=== PATIENT | male | born 1965 | race Caucasian/White ===

== ENCOUNTER 2019-07-25 07:46 | Day surgery (SDC) | payer OTHER ==
[~2019-07-25] VITALS: Ht 177.8 cm; Wt 109.0 kg
[~2019-07-25 07:46] MED LIST: ACETAMINOPHEN 500 MG TABLET PO PRN; ASPI-630 PO; BUPIVACAINE-EPI 0.25%-1:200000 MPF 30 ML VIAL. INJ ONE; HYDROmorphone 2 MG/ML VIAL IV PRN; IV RINGERS,LACTATED 1000ML 1,000 ML IV SCH; LIDOCAINE 1% PF 2 ML VIAL. ID PRN; LISI10TA2 PO; MORPHINE SULFATE 2 MG/ML VIAL. IV PRN; ONDA8TAB9 PO; ONDANSETRON PF 4 MG/2 ML VIAL. IV PRN; PROCHLORPERAZINE 10 MG/2 ML VIAL. IV PRN; RANI150C PO; fentaNYL PF VIAL 100 MCG/2 ML VIAL IV PRN
[2019-07-25] MEDS ORDERED: ROCURONIUM 50 MG/5 ML VIAL. ONE (08:42)
[2019-07-25] MEDS ORDERED: SEVOFLURANE 61 TO 120 MINUTES. IH ONE (08:42)
[2019-07-25] MEDS ORDERED: fentaNYL PF VIAL 100 MCG/2 ML VIAL ONE (08:42)
[2019-07-25] MEDS ORDERED: DEXAMETHASONE SOD PHOS 4 MG/ML VIAL ONE ×3 (08:43→09:44)
[2019-07-25] MEDS ORDERED: LIDOCAINE 2% PF 5 ML VIAL. ONE (08:43)
[2019-07-25] MEDS ORDERED: PROPOFOL 20 ML IV ONE ×2 (08:43→09:28)
[2019-07-25] MEDS ORDERED: KETOROLAC 30 MG/ML VIAL. ONE (08:43)
[2019-07-25] MEDS ORDERED: ONDANSETRON PF 4 MG/2 ML VIAL. ONE (08:43)
[2019-07-25] MEDS ORDERED: PHENYLEPHRINE in 0.9% NACL PF 1 MG/10 ML SYRINGE. IV ONE (08:45)
[2019-07-25] MEDS ORDERED: MIDAZOLAM HCL/PF 2 MG/2 ML VIAL. ONE (08:49)
[2019-07-25] MEDS ORDERED: GLYCOPYRROLATE 1 MG/5 ML VIAL. ONE (08:49)
[2019-07-25] MEDS ORDERED: ceFAZolin 2GM PREMIX 2 GM/50 ML BAG IV ONE (09:00)
[2019-07-25] MEDS ORDERED: ePHEDrine PF IN SALINE 50 MG/10 ML SYRINGE. IV ONE (09:36)
[2019-07-25] MEDS ORDERED: NEOSTIGMINE METHYLSULFATE 5 MG/5 ML SYRINGE. ONE (09:42)
--- NOTE | 2019-07-25 09:52 | PDOC4 ---
Operative Note Operative Note Date: 07/25/2019 Preoperative diagnosis chronic cholecystitis cholelithiasis Postoperative diagnosis: Same Procedure: Laprascopic cholecystectomy Surgeon: Juan Specimen: Gallbladder Dictation: Patient is a 54-year-old gentleman with right upper quadrant abdominal pain and ultrasound showing gallstones. The procedure of laparoscopic cholecystectomy was explained to the patient in detail all risks benefits were also discussed including bleeding infection injury to intra-abdominal contents possibly necessitating further or open operations alternatives to this procedure also discussed with patient who seemed to understand gave both verbal and written consent to have the procedure performed. Patient was taken to the operating room placed in supine position general anesthesia was initiated once patient was asleep and intubated his abdomen was prepped and draped usual sterile fashion using ChloraPrep and area just below the umbilicus was injected with quarter percent Marcaine with epinephrine incision was made Ensign blade scalpel varies needle was placed within the abdomen creating pneumoperitoneum once this complete 11 mm port was placed and a 5 mm camera was placed within the abdomen which was inspected no other abdomen maladies were noted 5 mm port was placed in the epigastrium one in the right mid abdomen and one in the right lateral abdomen the dome of the gallbladder is grasped and retracted cephalad the infundibulum of the gallbladder is grasped and retracted laterally exposing the triangle adherent tissues of the triangle were taken down exposing the cystic duct and cystic artery both were doubly clipped and transected the gallbladder was taken off the liver with hook Lek cautery placed in Endo Catch bag and removed from the umbilicus right upper quadrant was irrigated and suctioned dry hemostasis was deemed to be appropriate and the pneumoperitoneum was reduced all ports removed the fascial defect at the umbilicus closed with a [id number] 0 Vicryl suture and the skin was approximated all port sites for septic and a Monocryl Mastisol Steri-Strips and island dressings were applied. Patient was awakened and extubated in the operating room taken to recovery in stable condition all sponge instrument needle counts listed as correct estimated blood loss 10 mL HELGA AMADOR MD Jul 25, 2019 09:52
--- NOTE | 2019-07-25 09:54 | DISCH ---
DISCHARGE INSTRUCTIONS Condition on Discharge Condition on Discharge: Stable Activity After Discharge Activity Instructions for Disc: Avoid exertion Other activity instructions: no lifting more than 20 pounds for 2 weeks Diet after Discharge Diet after Discharge: Low Fat Wound Incision Care Other wound/incision instructi: Agnieszka sweeney in 24 hours Follow-Up Follow up with: Dr. Amador in 2 weeks HELGA AMADOR MD Jul 25, 2019 09:54
[2019-07-25] MEDS ORDERED: oxyCODONE/APAP 5/325 1 TAB TABLET PO ONE ×2 (10:15)
[2019-07-25 11:35] VITALS: BP 141/85
--- NOTE | 2019-07-29 09:07 | PATHOLOGY ---
[facility] Accession Number: [id number] . 01 Material submitted: . gallbladder - GALLBLADDER . 01 Clinical history: . Chronic cholecystitis . 02 Diagnosis: Gallbladder, cholecystectomy: - Chronic cholecystitis. - Cholelithiasis. (SKM:[facility]; 07/28/2019) [facility] 07/28/2019 1446 Local . 02 Electronically signed: . Alon Kingston MD, Pathologist NPI- [id number] . 01 Gross description: . The specimen is received in formalin labeled "Kina, Ryan, gallbladder" and consists of an intact green-pink and smooth gallbladder measuring 9.8 x 3.1 x 3.0 cm. The margin is inked black. Opening reveals a lumen filled with tenacious green bile and multiple dark brown multifaceted calculi measuring 6.6 x 6.6 x 1.4 cm in aggregate. The mucosa is green with yellow stippling, trabeculated, and eroded with an average wall thickness of 0.1 cm. No masses are identified. Vacuum Extractor Operator sections are submitted in A1. (SDY; 07/25/2019) SYU/SYU 07/25/2019 1639 Local . 02 Pathologist provided ICD-10: K80.10 . 02 CPT . 969735 Specimen Comment: A courtesy copy of this report has been sent to Specimen Comment: [phone], . Specimen Comment: Report sent to / DR NOYOLA Performed at: 01 [facility] [address], [place] [id number] MD Terrell Moe MD Phone: [phone] Performed at: 02 [facility] [address] [place], [place] [id number] MD Derrick Blum MD Phone: [phone]
== END 2019-07-25 11:35 | disposition home or self-care (01) ==
LOC: SURG 07:46
PROVIDERS: ATTEND Surgery
DX: K80.10 Calculus of gallbladder with chronic cholecystitis without obstruction (principal)
CPT/HCPCS: 47562; A7015; J0171; J0696; J1100; J1885; J2001; J2250; J2370; J2405; J2704; J2710; J3010; J3490; J7030; J7120